=== PATIENT | male | born 1940 | race Caucasian/White ===

== ENCOUNTER → 2019-11-05 | Day surgery (SDC) | payer BC ==
[~2019-11-05] MED LIST: ASA81BEC PO; CATAPRES0.1 MG PO; DORZOLAMIDE 2%10 ML EA. EYE; FLOMAX0.4 MG PO; LEVO-T50 MCG PO; LIPITOR10 MG PO; NORCO 5-325 TA1 EAC1 PO; NORVASC5 M1 PO; PROSCAR 5MG TABL5 M1 PO; RENAL-VITE TAB0.8 MG PO; RENVELA800 MG PO; TRESIBA FL100 UNIT/1 SUBQ; TYLENOL EXTRA500 MG PO; VYZULTA5 ML EA. EYE; ZOLOFT100 MG PO
--- NOTE | ~2019-11-05 | OP ---
[address] [address] OPERATIVE REPORT Name: ERICK MOROCHO Room: [facility]#: [id number] Admission: 11/05/19 Attend Phys: Lex Salinas MD Discharge: Date of : 36 Report #: [id number] THIS REPORT FOR: //name// cc: Natalie Chisholm MD, Tuongvan T. MD ~ THIS REPORT FOR: //name// CC: Lex Chisholm DATE OF SERVICE: 11/05/2019 PREOPERATIVE DIAGNOSIS: End-stage renal disease. POSTOPERATIVE DIAGNOSIS: End-stage renal disease. PROCEDURE: Left upper extremity AV fistula formation between the brachial artery and cephalic vein. SURGEON: Lex Salinas MD BIOMATERIALS ENGINEER: Dr. Fajardo, resident. COMPLICATIONS: None. ESTIMATED BLOOD LOSS: 10 mL. SPECIMEN: None. ANESTHESIA: Local sedation. COMPLICATIONS: None. INDICATIONS FOR PROCEDURE: The patient is a very pleasant 79-year-old white male with end-stage renal disease, on dialysis through a tunneled dialysis catheter. I have been asked to place an AV fistula. Informed consent was obtained from the patient with risks including but not limited to bleeding, infection, need for further surgery, pain, , heart attack, stroke, steal syndrome. The patient understood these risks and was agreeable to proceed. DESCRIPTION OF PROCEDURE: The patient was taken to the operating room and placed in supine position. Sedation was initiated. The left arm was prepped and draped in usual sterile fashion. Timeout was performed. I infused 10 mL of 1% lidocaine and 0.5% Marcaine throughout the procedure for local anesthetic. I created a transverse incision just above the antecubital fossa. Sharp and blunt dissections were carried down to cephalic vein, [place] [address] OPERATIVE REPORT Name: ERICK MOROCHO Room: [facility]#: [id number] Admission: 11/05/19 Attend Phys: Lex Salinas MD Discharge: Date of : 36 Report #: [id number] adequate caliber for fistula formation. We ligated the distal end of the cephalic vein and spatulated the free end. I was able to pass a 3 mm dilator without difficulty. I then flushed the vein with heparinized saline. I then dissected out the brachial artery and controlled proximally and distally with clamps. I heparinized the patient at this point in time. I created a longitudinal arteriotomy in the brachial artery and created end-to-side anastomosis with the cephalic vein using a running 6-0 Prolene suture. At the completion of anastomosis, there was adequate hemostasis and excellent blood flow through the fistulized vein with a palpable thrill running up the arm. We did ligate one large side branch, which was running laterally. We used ties and clips for this. We freed up some of the tissue around the vein to make sure that there was no outflow obstruction. We irrigated the wound bed with antibiotic saline, controlled bleeding as needed with electrocautery, ties, clips and Lisa, closed the wound in multiple layers using 3-0 Vicryl and 4-0 Monocryl. Incision was dressed with Dermabond. The patient tolerated the procedure well and was taken alert and awake to recovery room in good condition. All needle and instrument counts were correct. By: [id number] Salinas MD /nt
[2019-11-05 06:44] LABS: HEMATOCRIT 35.4 % (42.0-52.0); HEMOGLOBIN 11.4 gm/dL (14.0-18.0); MCHC 32.3 g/dL (28.0-37.0); MPV 8.7 fl. (7.2-11.1); RBC 3.94 mil/uL (4.50-6.00); RDW-CV 21.3 % (10.5-14.5)
[2019-11-05 06:45] LABS: WBC 49.7 thou/uL (4.0-11.0)
[2019-11-05 06:59] LABS: CALCIUM 8.4 mg/dL (8.5-10.1); CREATININE 3.6 mg/dL (0.6-1.3); POTASSIUM 4.5 mmol/L (3.5-5.1)
[2019-11-05 07:09] LABS: ALBUMIN 3.5 g/dL (3.4-5.0); TOTAL BILIRUBIN 0.3 mg/dL (<0.1-1.0); TOTAL PROTEIN 6.6 g/dL (6.4-8.2)
--- NOTE | 2019-11-06 13:45 | EKG ---
[place] [address] ELECTROCARDIOGRAM REPORT Name: ERICK MOROCHO Room: [facility]#: [id number] Admission: 11/05/19 Attend Phys: Lex Salinas MD Discharge: Date of : 36 Date of Service: 11/05/19 1015 Report #: [id number] THIS REPORT FOR: cc: Natalie Chisholm MD, Tuongvan T. MD Holkins, John M. 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: : 1940 Requested By: Salvador Richey Order Number: [id number] Pallavi MARSHALL: Salvador Cody Measurements Intervals [place] Rate: 46 P: 66 LA: 336 QRS: -3 QRSD: 100 T: 86 QT: 513 QTc: 449 Interpretive Statements Sinus bradycardia Prolonged [place] interval No previous ECG available for comparison Electronically Signed On 11-05-2019 12:53:28 [employer] by Salvador Cody [email or web address] <ELECTRONICALLY SIGNED> By: Salvador Cody MD, [facility] 11/05/19 1253 1015 1015 Salvador Cody MD, [facility] /EPI
--- NOTE | 2019-11-06 13:45 | EKG ---
[place] [address] ELECTROCARDIOGRAM REPORT Name: ERICK MOROCHO Room: [facility]#: [id number] Admission: 11/05/19 Attend Phys: Lex Salinas MD Discharge: Date of : 36 Date of Service: 11/05/19 0656 Report #: [id number] THIS REPORT FOR: cc: Natalie Chisholm MD, Tuongvan T. MD Holkins, John M. MD [facility] ~ THIS REPORT FOR: //name// 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 : 1940 Requested By: Lex Salinas Order Number: [id number] Reading MD: Salvador Cody Measurements Intervals [place] Rate: 46 P: 30 W[place]: 300 QRS: -10 QRSD: 97 T: 71 QT: 504 QTc: 441 Interpretive Statements Sinus bradycardia Atrial premature complex Prolonged [place] interval Anteroseptal infarct, old Baseline wander in lead(s) V2 No previous ECG available for comparison Electronically Signed On 11-05-2019 12:52:03 [employer]NER by Salvador Cody [email or web address] <ELECTRONICALLY SIGNED> By: Salvador Cody MD, [facility] 11/05/19 1252 0656 0656 Salvador Cody MD, [facility] /EPI
== END | disposition home or self-care (01) ==
LOC: M.SUR 06:07
PROVIDERS: Surgery Vascular Surgery
DX: I12.9 Hypertensive chronic kidney disease with stage 1 through stage 4 chronic kidney disease, or unspecified chronic kidney disease (principal); E11.22 Type 2 diabetes mellitus with diabetic chronic kidney disease; N18.6 End stage renal disease; E78.5 Hyperlipidemia, unspecified; Z99.2 Dependence on renal dialysis; Z98.890 Other specified postprocedural states; Z79.899 Other long term (current) drug therapy; Z79.82 Long term (current) use of aspirin; Z87.442 Personal history of urinary calculi

== ENCOUNTER 2021-07-31 20:30 | Emergency (ER) | payer BC ==
[~2021-07-31] VITALS: Ht 175.3 cm; Wt 86.6 kg
[2021-07-31 21:52] LABS: HEMATOCRIT 22.3 % (42.0-52.0); MCH 33.4 pg (26.0-34.0); MCHC 31.5 g/dL (28.0-37.0); MPV 8.5 fl. (7.2-11.1); NUCLEATED RBCS 0 /100WBC; PLATELET COUNT* 103 thou/uL (150-400); RDW-CV 15.8 % (10.5-14.5)
[2021-07-31 21:55] LABS: CREATININE 5.9 mg/dL (0.6-1.3); POTASSIUM 3.5 mmol/L (3.5-5.1)
[2021-07-31 21:58] LABS: APTT 30.2 Seconds (25.0-31.3); INR 1.1; PROTIME 10.9 Seconds (9.20-11.50)
[2021-07-31 21:59] LABS: ALBUMIN 2.7 g/dL (3.4-5.0); TOTAL BILIRUBIN 0.3 mg/dL (<0.1-1.0); TOTAL PROTEIN 5.6 g/dL (6.4-8.2)
[2021-07-31 22:04] LABS: WBC 44.8 thou/uL (4.0-11.0)
[2021-07-31 22:54] LABS: ABSOLUTE EOSINOPHILS 0.4 thou/uL (0.0-0.7); ABSOLUTE LYMPHOCYTES 40.8 thou/uL (0.8-5.3); ABSOLUTE MONOCYTES 2.2 thou/uL (0.0-1.2)
[2021-07-31 22:56] LABS: MACROCYTES 1+; PLATELET ESTIMATE DECREASED
[2021-07-31 23:06] LABS: ABSOLUTE NEUTROPHILS 1.3 thou/uL (1.6-8.1)
[2021-08-01 01:56] VITALS: BP 99/44
== END 2021-08-01 01:56 | disposition short-term general hospital (02) ==
LOC: M.ERS 20:30
PROVIDERS: Nurse Practitioner Psychiatric/Mental Health
DX: M25.572 Pain in left ankle and joints of left foot (principal); Z20.822 Contact with and (suspected) exposure to COVID-19; D64.9 Anemia, unspecified; Z79.4 Long term (current) use of insulin; Z79.899 Other long term (current) drug therapy